=== PATIENT | male | born 1965 | race Caucasian/White ===

== ENCOUNTER 2018-08-12 23:09 | Observation (INO) | payer BC ==
--- NOTE | 2018-08-13 00:55 | PDOC ---
Attending Attestation - HPI HPI: 08/13/18 04:26 The patient is a 52 year old male, with a significant past medical history of AAA rupture (2017 s/p repair), two MIs (s/p stent most recently in 2015), and SBO (03/2018), who presents to the emergency department with, 1 day of nausea, vomiting, and abdominal pain. Patient endorses his pain to be different from his previous episode of SBO. He denies any recent fevers, chills, headache or dizziness. He denies any recent diarrhea or constipation. He denies any recent chest pain or shortness of breath. He denies any recent dysuria, frequency, urgency or hematuria. Allergies: NKDA - Physicial Exam PE: 08/13/18 06:24 Agree with resident exam. <Nadeen Orellana - Last Filed: 08/13/18 06:24> - Resident Resident Name: John Salgado - ED Attending Attestation I have performed the following: I have examined & evaluated the patient, The case was reviewed & discussed with the resident, I agree w/resident's findings & plan - Medical Decision Making 08/13/18 06:52 52-year-old male with abdominal pain and history of multiple abdominal surgeries CT scan is consistent with small bowel obstruction NG tube to be placed in the emergency department by ER resident Patient will likely be transferred to his regular facility for further management and continuity of care Impression bowel obstruction <Cheyanne Acuna - Last Filed: 08/13/18 06:53> Attestations - Attestations 08/13/18 05:03 Documentation prepared by Nadeen Orellana, acting as director medical surgical for Cheyanne Acuna DO. <Nadeen Orellana - Last Filed: 08/13/18 06:24>
--- NOTE | 2018-08-13 02:21 | PDOC ---
History of Present Illness - General Chief Complaint: Nausea/Vomiting Stated Complaint: Nausea/Vomiting/ABD PAIN Time Seen by Provider: 08/13/18 00:49 - History of Present Illness Initial Comments: 52 year old male with PMH of AAA rupture (2017 s/p repair complicated with bowel resection and anastamosis), "throat stricture" (difficulty passing ng tubes in the past), two MIs (s/p stent most recently in 2015), and SBO (03/2018 with imaging in our facility) presenting with nausea, vomiting, and abdominal pain for the past day. States that he had nausea and vomiting x 4 since yesterday starting at 10 AM the day before presentation. The abdominal pain has been gradually worsening. The pain is worse with eating. Denies diarrhea, fevers , chills, SOB, chest pain, or other symptoms. 08/13/18 03:47 Past History - Past Medical History Allergies/Adverse Reactions: Allergies Allergy/AdvReac Type Severity Reaction Status Date / Time No Known Allergies Allergy Verified 08/12/18 23:40 Home Medications: Ambulatory Orders Aspirin 81 mg PO DAILY 01/22/18 Atorvastatin Ca [Lipitor] 80 mg PO HS 01/22/18 Clopidogrel Bisulfate [Clopidogrel] 75 mg PO DAILY 01/22/18 Docusate Sodium 100 mg PO DAILY 01/22/18 Lisinopril 10 mg PO DAILY 01/22/18 Metoprolol Tartrate 25 mg PO DAILY 01/22/18 Cardiac Disorders: Yes (4 stents) COPD: No CHF: No GI Disorders: Yes (3 stents) HTN: Yes Hypercholesterolemia: Yes - Surgical History Cardiac Surgery: Yes GI Surgery: Yes - Suicide/Smoking/Psychosocial Hx Smoking History: Never smoked Have you smoked in the past 12 months: No Information on smoking cessation initiated: No Hx Alcohol Use: No Drug/Substance Use Hx: No Review of Systems - Review of Systems Constitutional: No: Chills, Diaphoresis, Fever, Loss of Appetite HEENTM: No: Blurred Vision, Tearing Respiratory: No: Cough, Orthopnea, Shortness of Breath Cardiac (ROS): No: Chest Pain, Irregular Heart Rate ABD/GI: Yes: Nausea, Vomiting. No: Diarrhea, Poor Fluid Intake : No: Dysuria, Frequency Musculoskeletal: No: Back Pain, Joint Pain, Joint Swelling Integumentary: No: Lesions, Lumps, Pallor Neurological: No: Numbness, Paresthesia, Tremors Psychiatric: No: Anxiety, Depression Hematologic/Lymphatic: No: Anemia, Blood Clots, Easy Bleeding *Physical Exam - Vital Signs Last Vital Signs Temp Pulse Resp BP Pulse Ox 97.3 F L 120 H 22 H 143/97 100 08/12/18 23:37 08/12/18 23:37 08/12/18 23:37 08/12/18 23:37 08/12/18 23:37 - Physical Exam General Appearance: Yes: Nourished, Appropriately Dressed, Apparent Distress, Mild Distress HEENT: positive: EOMI, ANGY, Normal ENT Inspection, Normal Voice Neck: positive: Trachea midline, Normal Thyroid, Supple. negative: Tender, Rigid Respiratory/Chest: positive: Lungs Clear, Normal Breath Sounds. negative: Chest Tender, Respiratory Distress, Accessory Muscle Use Cardiovascular: positive: Regular Rhythm, Regular Rate Gastrointestinal/Abdominal: positive: Normal Bowel Sounds, Tender (diffusely tender), Flat, Soft Lymphatic: negative: Adenopathy, Tenderness Musculoskeletal: positive: Normal Inspection. negative: Decreased Range of Motion Extremity: positive: Normal Capillary Refill, Normal Inspection, Normal Range of Motion. negative: Tender Integumentary: positive: Normal Color, Dry, Warm Neurologic: positive: Fully Oriented, Alert, Normal Mood/Affect, Normal Response , Motor Strength 5/5 Moderate Sedation - Procedure Monitoring Vital Signs: Procedure Monitoring Vital Signs Temperature 97.3 F L 08/12/18 23:37 Pulse Rate 120 H 08/12/18 23:37 Respiratory Rate 22 H 08/12/18 23:37 Blood Pressure 143/97 08/12/18 23:37 O2 Sat by Pulse Oximetry (%) 100 08/12/18 23:37 ED Treatment Course - LABORATORY CBC & Chemistry Diagram: 08/13/18 03:40 08/13/18 03:40 Medical Decision Making - Medical Decision Making 52 year old male with history of SBO a few months in the past presenting with N/ V and abdominal pain. CTA abdomen / Pelvis showing intact AAA graft but + for SBO at site of anastamosis. Patient refusing NG tube because of previous difficulty and throat stricture. Given that patient's surgeon is at [facility] ( Dr. Jessica Molina) Mobile number . Patient agrees to transfer and we called the surgeon at 07:00. Patient signed out to Dr. Oden in stable condition with labs corroborating hyperbilirubenemia (1.4) and alkaline phosphatemia (160). 08/13/18 07:06 *DC/Admit/Observation/Transfer Diagnosis at time of Disposition: SBO (small bowel obstruction) - Discharge Dispostion Disposition: TRANSFER ACUTE CARE/OTHER HOSP Condition at time of disposition: Stable Decision to Admit order: No - Referrals Referrals: Erick Zavala MD [Primary Care Provider] - - Patient Instructions - Post Discharge Activity
[2018-08-13] MEDS ORDERED: MAG HYDROX/AL HYDROX/SIMETH 30 ML UNIT-DOSE CUP PO ONE (03:41)
[2018-08-13] MEDS ORDERED: PANTOPRAZOLE SODIUM 40 MG VIAL IVPUSH ONE (03:42)
[2018-08-13] MEDS ORDERED: FAMOTIDINE 20 MG/50 ML IVPB 20 MG/50 ML MG IVPB ONE ×2 (03:45→03:47)
[2018-08-13] MEDS ORDERED: SODIUM CHLORIDE 0.9% 500 ML INFUS.BAG IV ONE (03:46)
[2018-08-13] MEDS ORDERED: PANTOPRAZOLE SODIUM 40 MG/100 ML BAG IVPB ONE (03:47)
[2018-08-13] MEDS ORDERED: MORPHINE SULFATE 2 MG/ML VIAL ONE ×2 (04:07→05:09)
[2018-08-13] MEDS ORDERED: ONDANSETRON 4 MG/2 ML VIAL ONE ×2 (04:08→08:23)
[2018-08-13 04:36] LABS: INR 1.02 (0.83-1.09)
[2018-08-13 04:49] LABS: BASO % 0.1 % (0-2.0); EOS % 0.1 % (0-4.5); HEMOGLOBIN 15.7 GM/dL (11.7-16.9); LYMPH % 5.1 % (8-40); MCH 28.1 pg (25.7-33.7); MCHC 33.4 g/dl (32.0-35.9); MEAN PLT VOLUME 8.7 fl (7.5-11.1); MONO % 5.4 % (3.8-10.2); NEUT % 89.3 % (42.8-82.8); PLATELET COUNT 226 K/MM3 (134-434); RBC 5.59 M/mm3 (4.00-5.60); RDW 18.3 % (11.9-15.9); WHITE BLOOD COUNT 11.8 K/mm3 (4.0-10.0)
[2018-08-13 04:51] LABS: ALBUMIN 4.2 g/dl (3.4-5.0); ALK PHOS 150 U/L (45-117); AMYLASE 45 U/L (25-115); ANION GAP 10 MMOL/L (8-16); BILIRUBIN,TOTAL 1.4 mg/dL (0.2-1); BLOOD UREA NITROGEN 13 mg/dL (7-18); CALCIUM 9.1 mg/dL (8.5-10.1); CHLORIDE 104 mmol/L (98-107); CO2 26 mmol/L (21-32); CREATININE 1.3 mg/dL (0.55-1.3); GLUCOSE,RANDOM 136 mg/dL (74-106); LIPASE 115 U/L (73-393); POTASSIUM 4.5 mmol/L (3.5-5.1); SGOT/AST 9 U/L (15-37); SGPT/ALT 39 U/L (13-61); SODIUM 140 mmol/L (136-145); TOT PROT 7.8 g/dl (6.4-8.2)
[2018-08-13] MEDS ORDERED: morphine CARPU-JECT 2 MG/1 ML DISP.SYRIN IVPUSH ONE (05:01)
[2018-08-13] MEDS ORDERED: ONDANSETRON 4 MG/2 ML VIAL IVPB ONE (08:16)
[2018-08-13] MEDS ORDERED: morphine CARPU-JECT 4 MG/1 ML DISP.SYRIN IVPUSH ONE (08:16)
--- NOTE | 2018-08-13 08:18 | PDOC ---
*Physical Exam - Vital Signs Last Vital Signs Temp Pulse Resp BP Pulse Ox 97.3 F L 120 H 22 H 143/97 100 08/12/18 23:37 08/12/18 23:37 08/12/18 23:37 08/12/18 23:37 08/12/18 23:37 ED Treatment Course - LABORATORY CBC & Chemistry Diagram: 08/14/18 06:45 08/14/18 06:45 - ADDITIONAL ORDERS Additional order review: Laboratory Results 08/13/18 08/13/18 08/13/18 05:27 04:00 03:40 PT with INR 12.00 INR 1.02 Sodium 140 Potassium 4.5 Chloride 104 Carbon Dioxide 26 Anion Gap 10 BUN 13 Creatinine 1.3 Creat Clearance w eGFR 58.43 Random Glucose 136 H Calcium 9.1 Total Bilirubin 1.4 H AST 9 L ALT 39 Alkaline Phosphatase 150 H Total Protein 7.8 Albumin 4.2 Total Amylase 45 Lipase 115 Stool Occult Blood Negative 08/13/18 03:40 RBC 5.59 MCV 84.0 MCHC 33.4 RDW 18.3 H MPV 8.7 Neutrophils % 89.3 H Lymphocytes % 5.1 L Monocytes % 5.4 Eosinophils % 0.1 Basophils % 0.1 - Medications Given in the ED: ED Medications Discontinued Medications Generic Name Dose Route Start Last Admin Trade Name Erasto PRN Reason Stop Dose Admin Al Hydroxide/Mg Hydroxide 30 ml 08/13/18 03:41 08/13/18 04:01 Mylanta Oral Suspension - PO 08/13/18 03:42 Not Given ONCE ONE Famotidine/Sodium Chloride 20 mg in 50 mls @ 100 mls/hr 08/13/18 03:45 04:00 Pepcid 20 Mg Premixed Ivpb - IVPB 08/13/18 04:14 100 mls/hr ONCE ONE Administration Morphine Sulfate 2 mg 08/13/18 05:01 08/13/18 05:30 Morphine Injection - IVPUSH 08/13/18 05:02 2 mg ONCE ONE Administration Pantoprazole Sodium 40 mg 08/13/18 03:42 08/13/18 04:00 Protonix Iv IVPUSH 08/13/18 03:43 40 mg ONCE ONE Administration Sodium Chloride 1,000 ml 08/13/18 03:46 08/13/18 04:00 Normal Saline - IV 08/13/18 03:47 1,000 ml ONCE ONE Administration Medical Decision Making - Medical Decision Making 08/13/18 08:16 sign out received at 7AM 52M with h/o AAA repair c/b ischemic bowel s/p resection, c/b recurrent SBO, presenting today with N/V/abdominal pain. - CT shows SBO with transition point in RLQ - I spoke with Dr. Molina, who agrees with transfer to [facility] Transfer center called, awaiting callback 08/13/18 09:29 Pt accepted for transfer to floor at [facility] by Dr. Molina 08/13/18 11:32 Transfer center called, stating there are no beds available until tomorrow morning. Pt admitted to Dr. Zavala as obs 08/13/18 11:36 Dr. Monahan consulted, recommends that pt be sent to [facility] ED to wait for bed rather than be admitted here. Discussed with Dr. Molina, who does NOT want ED to ED transfer. Requesting that pt be admitted directly to the floor. *DC/Admit/Observation/Transfer Diagnosis at time of Disposition: SBO (small bowel obstruction) - Discharge Dispostion Disposition: TRANSFER ACUTE CARE/OTHER HOSP Condition at time of disposition: Stable Decision to Admit order: Yes - Referrals - Patient Instructions - Post Discharge Activity - Attestations Physician Attestion: 08/13/18 08:18 I, Dr. Gab Oden MD, attest that this document has been prepared under my direction and personally reviewed by me in its entirety. I further attest, that it accurately reflects all work, treatment, procedures and medical decision -making performed by me.
[2018-08-13] MEDS ORDERED: morphine SULFATE 4 MG/ML VIAL ONE (08:23)
[2018-08-13] MEDS ORDERED: CEFTRIAXONE 1,000 MG in DEXTROSE 5%-WATER - 50 ML IVPB ONE (11:39)
[2018-08-13] MEDS ORDERED: CEFTRIAXONE 1 GM/50 ML BAG ONE (12:02)
--- NOTE | 2018-08-13 13:16 | EKG ---
Test Reason : Blood Pressure : / mmHG Vent. Rate : 093 BPM Atrial Rate : 093 BPM P-R Int : 164 ms QRS Dur : 128 ms QT Int : 382 ms P-R-T Axes : 026 128 037 degrees QTc Int : 474 ms NORMAL SINUS RHYTHM RIGHT BUNDLE BRANCH BLOCK LEFT POSTERIOR FASCICULAR BLOCK BIFASCICULAR BLOCK ABNORMAL ECG WHEN COMPARED WITH ECG OF 22-JAN-2018 22:21, (RBBB AND LEFT POSTERIOR FASCICULAR BLOCK) IS NOW PRESENT Confirmed by KARTHIK LEIGH, TJ ([id number] on 08/13/2018 1:16:06 PM Referred By: Confirmed By:TJ ANGELES MD
[2018-08-13 14:01] VITALS: BMI 31.0
[2018-08-13] MEDS ORDERED: FLU VACCINE QUAD 60 MCG/0.5 ML (MDV 18-19) IM ONE (15:00)
[2018-08-13] MEDS ORDERED: DEXTROSE 5%-0.45% SALINE 1,000 ML IV SCH (15:15)
--- NOTE | 2018-08-13 16:07 | PN ---
Progress Note (short form) - Note Progress Note: surgery 52 m on plavix, multiple cardiac and medical problems, aaa repair in 2017 with small rosio injury and resection at [facility], last sbo in march, presents with recurrent sbo and accepted for transfer to [facility]. Since there are no beds available at [facility] until am pt is to be observed at [facility] with me available to intervene emergently if necessary. I requested to Dr. MANLEY that pt be transferred directly to the [place] ER and not kept here where he cannot be safely managed and my request was declined by [facility] per Dr. MANLEY. I am available for emergent surgery if patient develops bowel compromise. Because of cardiac condition and Plavix he cannot by managed safely at a [facility] and any surgery would likely have a poor outcome.
[2018-08-13] MEDS ORDERED: morphine SULFATE 4 MG/ML VIAL IVPUSH PRN (17:42)
[2018-08-13] MEDS ORDERED: ONDANSETRON 4 MG/2 ML VIAL IVPB PRN (17:42)
[2018-08-13] MEDS ORDERED: DEXTROSE 5%-WATER - 50 ML IVPB ONE (20:08)
[2018-08-13] MEDS ORDERED: PIPERACILLIN/TAZOBACTAM 3.375 GM VIAL IVPB ONE (20:08)
[2018-08-13] MEDS ORDERED: ZOLPIDEM TARTRATE 5 MG TABLET PO PRN (20:08)
[2018-08-13] MEDS: PIPERACILLIN/TAZOB 3.375 GM 3.375 GM in DEXTROSE 5%-WATER - 50 ML IVPB SCH (20:20)
[2018-08-14] MEDS ORDERED: PIPERACILLIN/TAZOBACTAM 3.375 GM VIAL IVPB ONE ×2 (00:19→09:34)
[2018-08-14] MEDS: PIPERACILLIN/TAZOB 3.375 GM 3.375 GM in DEXTROSE 5%-WATER - 50 ML IVPB SCH ×2 (01:32→09:48)
[2018-08-14 08:10] LABS: BASO % 0.5 % (0-2.0); EOS % 4.2 % (0-4.5); HEMATOCRIT 36.8 % (35.4-49); HEMOGLOBIN 12.3 GM/dL (11.7-16.9); LYMPH % 21.3 % (8-40); MCH 28.4 pg (25.7-33.7); MCHC 33.4 g/dl (32.0-35.9); MEAN CELL VOLUME 85.1 fl (80-96); MEAN PLT VOLUME 8.4 fl (7.5-11.1); MONO % 13.9 % (3.8-10.2); NEUT % 60.1 % (42.8-82.8); PLATELET COUNT 163 K/MM3 (134-434); RBC 4.33 M/mm3 (4.00-5.60); RDW 18.2 % (11.9-15.9); WHITE BLOOD COUNT 5.3 K/mm3 (4.0-10.0)
[2018-08-14 08:39] LABS: ALBUMIN 3.2 g/dl (3.4-5.0); ALK PHOS 107 U/L (45-117); ANION GAP 6 MMOL/L (8-16); BLOOD UREA NITROGEN 15 mg/dL (7-18); CALCIUM 7.8 mg/dL (8.5-10.1); CHLORIDE 108 mmol/L (98-107); CO2 27 mmol/L (21-32); CREATININE 1.2 mg/dL (0.55-1.3); GLUCOSE,RANDOM 106 mg/dL (74-106); POTASSIUM 3.7 mmol/L (3.5-5.1); SGOT/AST 12 U/L (15-37); SGPT/ALT 24 U/L (13-61); SODIUM 140 mmol/L (136-145); TOT PROT 5.9 g/dl (6.4-8.2)
[2018-08-14] MEDS ORDERED: DEXTROSE 5%-WATER - 50 ML IVPB ONE (09:34)
[2018-08-14 09:41] VITALS: BP 106/76; PULSE 75; TEMP 98
[2018-08-14] MEDS ORDERED: PANTOPRAZOLE SODIUM 40 MG VIAL IVPUSH SCH (10:00)
--- NOTE | 2018-08-14 10:50 | HP ---
Admitting History and Physical - Admission Chief Complaint: 55 y/o s/p lolectomy w colostomy and recnt reversal october of colostomy. c/o abd pain scale 7 h/o mi x 2 stents x2 in past a/p abd aortic repair admitted sbo. tolerating diet as per sx able to go hoime History Source: Patient, Family Member Limitations to Obtaining History: No Limitations - Past Medical History Gastrointestinal: Yes: Other (less pain soft) Infectious Disease: Yes: Other (wbc nl now) - Past Surgical History Past Surgical History: Yes: Appendectomy (abd aortic aneurysm repair), Colectomy (colostomy w recnt reversal abd aortic aneurysm repair) - Smoking History Smoking history: Former smoker Have you smoked in the past 12 months: No If you are a former smoker, when did you quit?: 2016 - Alcohol/Substance Use Hx Alcohol Use: No (quit 2015) History of Substance Use: reports: None - Social History Usual Living Arrangement: Yes: With Spouse History of Recent Travel: No Home Medications - Allergies Allergies/Adverse Reactions: Allergies Allergy/AdvReac Type Severity Reaction Status Date / Time No Known Allergies Allergy Verified 08/12/18 23:40 - Home Medications Home Medications: Ambulatory Orders Aspirin 81 mg PO DAILY 01/22/18 Atorvastatin Ca [Lipitor] 80 mg PO HS 01/22/18 Clopidogrel Bisulfate [Clopidogrel] 75 mg PO DAILY 01/22/18 Docusate Sodium 100 mg PO DAILY 01/22/18 Lisinopril 10 mg PO DAILY 01/22/18 Metoprolol Tartrate 25 mg PO DAILY 01/22/18 Family Disease History - Family Disease History Family History: Unremarkable Review of Systems - Review of Systems Gastrointestinal: reports: Abdominal Pain Physical Examination Vital Signs: Vital Signs Temperature 98.0 F 08/14/18 09:40 Pulse Rate 75 08/14/18 09:40 Respiratory Rate 20 08/14/18 09:40 Blood Pressure 106/76 08/14/18 09:40 O2 Sat by Pulse Oximetry (%) 96 08/13/18 19:40 Labs: CBC, BMP 08/14/18 06:45 08/14/18 06:45 Assessment/Plan soft diet d/c home today cont all tx as is at home appt w me saturday
== END 2018-08-14 11:23 | disposition home or self-care (01) ==
LOC: JER 23:09 → JERBED 08-13 11:38 → J6S 08-13 12:47
PROVIDERS: ADMIT Family Medicine; ATTEND Family Medicine
PROC: 3E03329 Introduction of Other Anti-infective into Peripheral Vein, Percutaneous Approach (ICD-10-PCS; principal; 2018-08-13)
PROC: 3E033NZ Introduction of Analgesics, Hypnotics, Sedatives into Peripheral Vein, Percutaneous Approach (ICD-10-PCS; 2018-08-13)
PROC: 3E033GC Introduction of Other Therapeutic Substance into Peripheral Vein, Percutaneous Approach (ICD-10-PCS; 2018-08-13)
PROC: 3E0337Z Introduction of Electrolytic and Water Balance Substance into Peripheral Vein, Percutaneous Approach (ICD-10-PCS; 2018-08-13)
PROC: 3E0234Z Introduction of Serum, Toxoid and Vaccine into Muscle, Percutaneous Approach (ICD-10-PCS; 2018-08-13)
DX: K56.690 Other partial intestinal obstruction (principal); I25.2 Old myocardial infarction; Z79.82 Long term (current) use of aspirin; Z95.5 Presence of coronary angioplasty implant and graft; Z86.79 Personal history of other diseases of the circulatory system
CPT/HCPCS: 36415; 75635-TC; 80053; 82150; 82272; 83605; 83690; 85025; 85610; 90688; 93005; 93010; 99284-25; G0378

== ENCOUNTER 2019-05-25 13:05 | Day surgery (SDC) | payer BC ==
[2019-05-25 13:33] VITALS: BMI 31.8
[2019-05-25 14:51] VITALS: TEMP 98
[2019-05-25 15:30] VITALS: BP 135/80; PULSE 73
== END 2019-05-25 15:40 | disposition home or self-care (01) ==
LOC: JASU-ENDO 13:05 → JOR 13:05 → JASU-ENDO 15:40
PROVIDERS: ATTEND Internal Medicine Gastroenterology
PROC: 0D7P8ZZ Dilation of Rectum, Via Natural or Artificial Opening Endoscopic (ICD-10-PCS; principal; 2019-05-25 14:00)
DX: K62.4 Stenosis of anus and rectum (principal); K58.1 Irritable bowel syndrome with constipation

== ENCOUNTER 2020-09-09 17:16 | Emergency (ER) | payer BC ==
[2020-09-09 17:27] VITALS: BMI 32.5
[2020-09-09] MEDS ORDERED: ACETAMINOPHEN 1000 MG/100 ML VIAL (NON FORMULARY) IVPB ONE (19:20)
[2020-09-09] MEDS ORDERED: ACETAMINOPHEN INJECTION 100 ML IVPB ONE (19:41)
[2020-09-09 19:52] LABS: BASO % 0.4 % (0-2.0); EOS % 2.7 % (0-4.5); HEMATOCRIT 46.3 % (35.4-49); HEMOGLOBIN 15.6 GM/dL (11.7-16.9); LYMPH % 26.9 % (8-40); MCH 30.7 pg (25.7-33.7); MCHC 33.7 g/dl (32.0-35.9); MEAN CELL VOLUME 91.2 fl (80-96); MEAN PLT VOLUME 9.5 fl (7.5-11.1); MONO % 9.3 % (3.8-10.2); NEUT % 60.7 % (42.8-82.8); PLATELET COUNT 237 K/MM3 (134-434); RBC 5.07 M/mm3 (4.00-5.60); RDW 13.8 % (11.9-15.9); WHITE BLOOD COUNT 9.5 K/mm3 (4.0-10.0)
[2020-09-09 19:57] LABS: INR 0.9 (0.83-1.09); PROTHROMBIN TIME (PATIENT) 10.9 SEC (9.7-13.0)
[2020-09-09 20:11] LABS: CHLORIDE 107 mmol/L (98-107); SODIUM 137 mmol/L (136-145)
[2020-09-09 20:13] LABS: CALCIUM 8.8 mg/dL (8.5-10.1)
[2020-09-09 20:14] LABS: ALBUMIN 3.8 g/dl (3.4-5.0); BLOOD UREA NITROGEN 13.2 mg/dL (7-18); CO2 27 mmol/L (21-32); GLUCOSE,RANDOM 138 mg/dL (74-106)
[2020-09-09 20:17] LABS: CREATININE 1.3 mg/dL (0.55-1.3); SGOT/AST 64 U/L (15-37)
[2020-09-09 20:18] LABS: BILIRUBIN,TOTAL 0.5 mg/dL (0.2-1)
[2020-09-09 20:20] LABS: ALK PHOS 155 U/L (45-117)
[2020-09-09 20:26] LABS: ANION GAP 3 MMOL/L (8-16); SGPT/ALT 48 U/L (13-61)
[2020-09-09 20:28] LABS: POTASSIUM 6.1 mmol/L (3.5-5.1)
[2020-09-09 20:51] LABS: ERYTHROCYTE SEDIMENTATION RATE 5 mm/hr (0-20)
[2020-09-09 21:16] VITALS: BP 104/81; PULSE 67
[2020-09-09 21:57] LABS: VENOUS BASE EXCESS 2.2 mmol/L (-2-2); VENOUS O2 SATURATION 93.2 % (70-80); VENOUS PCO2 40.8 mmHg (38-52); VENOUS PH 7.432 (7.310-7.410)
== END 2020-09-09 22:36 | disposition home or self-care (01) ==
LOC: JER 17:16
PROC: 3E0333Z Introduction of Anti-inflammatory into Peripheral Vein, Percutaneous Approach (ICD-10-PCS; principal; 2020-09-09)
DX: L95.9 Vasculitis limited to the skin, unspecified (principal); L81.9 Disorder of pigmentation, unspecified
CPT/HCPCS: 36415; 71045-TC-FY; 80053; 82803; 83605; 84132; 84484; 85025; 85610; 85651; 85730; 86140; 87040; 93005; 93010; 99285-25; J0131

== ENCOUNTER 2021-07-08 00:32 | Inpatient (IN) | payer BC ==
[2021-07-08 01:35] VITALS: BMI 33.4
[2021-07-08] MEDS ORDERED: LACTATED RINGERS SOLUTION 1000 ML INFUS.BAG IV ONE (02:18)
[2021-07-08] MEDS ORDERED: morphine SULFATE 4 MG/ML VIAL IVPUSH ONE (02:18)
[2021-07-08] MEDS ORDERED: ACETAMINOPHEN 1000 MG/100 ML VIAL IVPB ONE (02:18)
[2021-07-08] MEDS ORDERED: ONDANSETRON 4 MG/2 ML VIAL IVPUSH ONE (02:19)
[2021-07-08] MEDS ORDERED: ACETAMINOPHEN INJECTION 100 ML IVPB ONE (02:34)
[2021-07-08] MEDS ORDERED: ONDANSETRON 4 MG/2 ML VIAL ONE (02:34)
[2021-07-08 03:35] LABS: BASO % 0.2 % (0-2.0); HEMATOCRIT 53.9 % (35.4-49); HEMOGLOBIN 18.4 GM/dL (11.7-16.9); LYMPH % 4.9 % (8-40); MCHC 34.1 g/dl (32.0-35.9); MEAN CELL VOLUME 88.1 fl (80-96); MEAN PLT VOLUME 8.8 fl (7.5-11.1); NEUT % 86.9 % (42.8-82.8); PLATELET COUNT 293 10^3/uL (134-434); RBC 6.12 M/mm3 (4.00-5.60); RDW 13.9 % (11.9-15.9); WHITE BLOOD COUNT 10.9 K/mm3 (4.0-10.0)
[2021-07-08 03:44] LABS: INR 1.39 (0.83-1.09); PROTHROMBIN TIME (PATIENT) 15.6 SEC (9.7-13.0)
[2021-07-08 03:47] LABS: ACTIVATED PTT 34.4 SECONDS (25.2-36.5)
[2021-07-08 03:55] LABS: CHLORIDE 104 mmol/L (98-107); SODIUM 139 mmol/L (136-145)
[2021-07-08 03:58] LABS: ALBUMIN 4.9 g/dl (3.4-5.0); ANION GAP 9 MMOL/L (8-16); BLOOD UREA NITROGEN 18.9 mg/dL (7-18); CALCIUM 9.8 mg/dL (8.5-10.1); CO2 26 mmol/L (21-32); LIPASE 98 U/L (73-393)
[2021-07-08 04:01] LABS: CREATININE 1.5 mg/dL (0.55-1.3); SGOT/AST 19 U/L (15-37); SGPT/ALT 40 U/L (13-61)
[2021-07-08 04:03] LABS: BILIRUBIN,TOTAL 1.4 mg/dL (0.2-1); TOT PROT 9.6 g/dl (6.4-8.2)
[2021-07-08 04:04] LABS: ALK PHOS 186 U/L (45-117)
[2021-07-08] MEDS ORDERED: SODIUM CHLORIDE 0.9% 500 ML INFUS.BAG IV ONE (04:58)
[2021-07-08 05:10] LABS: GLUCOSE,RANDOM 147 mg/dL (74-106)
[2021-07-08 06:10] LABS: EPI CELLS 8 /uL (0-25.1); HYALINE CASTS 3 /uL (0-3.1); URINE APPEARANCE CLEAR; URINE BILIRUBIN 1+ (NEGATIVE); URINE COLOR DK YELLOW; URINE GLUCOSE (UA) NEGATIVE (NEGATIVE); URINE KETONE TRACE (NEGATIVE); URINE LEUK ESTERASE NEGATIVE (NEGATIVE); URINE NITRITE NEGATIVE (NEGATIVE); URINE PROTEIN 2+ (NEGATIVE); URINE RBC 21251 /uL (0-23.9); URINE WBC 41 /uL (0-25.8)
[2021-07-08 07:09] LABS: URINE BACTERIA 0.9 /uL (0-1359)
[2021-07-08] MEDS ORDERED: ALBUTEROL SO4 HFA INHALER IH PRN (10:20)
[2021-07-08] MEDS ORDERED: METOPROLOL TARTRATE 5 MG/5 ML VIAL IVPUSH ONE (10:24)
[2021-07-08] MEDS ORDERED: morphine CARPU-JECT 4 MG/1 ML DISP.SYRIN IVPUSH PRN (10:33)
[2021-07-08] MEDS ORDERED: PROMETHAZINE HCL 25 MG/1 ML VIAL IVPUSH PRN (14:06)
[2021-07-08] MEDS ORDERED: ONDANSETRON 4 MG/2 ML VIAL IVPUSH PRN (14:06)
[2021-07-08] MEDS ORDERED: LACTATED RINGERS SOLUTION 1,000 ML IV SCH (14:15)
[2021-07-08] MEDS: PIPERACILLIN/TAZOB 3.375 GM 3.375 GM in DEXTROSE 5%-WATER - 50 ML IVPB SCH ×2 (15:21→18:11)
[2021-07-08] MEDS: SODIUM CHLORIDE 1,000 ML IV SCH (15:22)
[2021-07-08] MEDS: RIVAROXABAN 20 MG TABLET PO SCH (18:11)
[2021-07-08] MEDS: morphine SULFATE 4 MG/ML VIAL IVPUSH PRN (19:53)
[2021-07-09] MEDS ORDERED: PIPERACILLIN/TAZOBACTAM 3.375 GM VIAL IVPB ONE ×3 (01:02→17:12)
[2021-07-09] MEDS ORDERED: DEXTROSE 5%-WATER - 50 ML IVPB ONE ×3 (01:02→17:12)
[2021-07-09] MEDS: PIPERACILLIN/TAZOB 3.375 GM 3.375 GM in DEXTROSE 5%-WATER - 50 ML IVPB SCH ×3 (01:09→17:16)
[2021-07-09] MEDS: TAMSULOSIN HCL 0.4 MG CAP PO SCH ×2 (01:58→10:06)
[2021-07-09] MEDS: morphine SULFATE 4 MG/ML VIAL IVPUSH PRN ×3 (04:17→21:43)
[2021-07-09] MEDS: SODIUM CHLORIDE 1,000 ML IV SCH ×3 (04:17→17:16)
[2021-07-09 08:24] LABS: BASO % 0.4 % (0-2.0); EOS % 1.2 % (0-4.5); HEMATOCRIT 39.5 % (35.4-49); HEMOGLOBIN 13.9 GM/dL (11.7-16.9); LYMPH % 19.2 % (8-40); MCH 30.8 pg (25.7-33.7); MCHC 35.1 g/dl (32.0-35.9); MEAN CELL VOLUME 87.7 fl (80-96); MEAN PLT VOLUME 8.2 fl (7.5-11.1); NEUT % 63.2 % (42.8-82.8); PLATELET COUNT 171 10^3/uL (134-434); RDW 13.6 % (11.9-15.9); WHITE BLOOD COUNT 6.6 K/mm3 (4.0-10.0)
[2021-07-09 08:45] LABS: BLOOD UREA NITROGEN 20.2 mg/dL (7-18)
[2021-07-09 08:49] LABS: CREATININE 1.3 mg/dL (0.55-1.3)
[2021-07-09 08:50] LABS: BILIRUBIN,TOTAL 1.2 mg/dL (0.2-1)
[2021-07-09 09:01] LABS: ALBUMIN 3.2 g/dl (3.4-5.0); TOT PROT 6.2 g/dl (6.4-8.2)
[2021-07-09] MEDS: amLODIPine BESYLATE 5 MG TABLET (FP) PO SCH (10:07)
[2021-07-09] MEDS: PANTOPRAZOLE SODIUM 40 MG VIAL IVPUSH SCH (10:12)
[2021-07-09] MEDS: RIVAROXABAN 20 MG TABLET PO SCH (17:08)
[2021-07-10] MEDS ORDERED: PIPERACILLIN/TAZOBACTAM 3.375 GM VIAL IVPB ONE ×3 (00:47→17:57)
[2021-07-10] MEDS ORDERED: DEXTROSE 5%-WATER - 50 ML IVPB ONE ×3 (00:47→17:58)
[2021-07-10] MEDS: PIPERACILLIN/TAZOB 3.375 GM 3.375 GM in DEXTROSE 5%-WATER - 50 ML IVPB SCH ×3 (01:00→18:03)
[2021-07-10] MEDS: SODIUM CHLORIDE 1,000 ML IV SCH ×2 (02:11→14:18)
[2021-07-10] MEDS: morphine SULFATE 4 MG/ML VIAL IVPUSH PRN ×3 (05:56→21:26)
[2021-07-10] MEDS: TAMSULOSIN HCL 0.4 MG CAP PO SCH (08:46)
[2021-07-10] MEDS: PANTOPRAZOLE SODIUM 40 MG VIAL IVPUSH SCH (10:03)
[2021-07-10] MEDS: amLODIPine BESYLATE 5 MG TABLET (FP) PO SCH (10:03)
[2021-07-10 10:59] LABS: CALCIUM 8.2 mg/dL (8.5-10.1)
[2021-07-10 11:00] LABS: BLOOD UREA NITROGEN 16.8 mg/dL (7-18)
[2021-07-10 11:03] LABS: CREATININE 1.1 mg/dL (0.55-1.3)
[2021-07-10 11:05] LABS: BILIRUBIN,TOTAL 0.8 mg/dL (0.2-1); TOT PROT 6.4 g/dl (6.4-8.2)
[2021-07-10 11:45] LABS: BASO % 0.4 % (0-2.0); HEMATOCRIT 41.3 % (35.4-49); LYMPH % 19.3 % (8-40); MCH 30.1 pg (25.7-33.7); MEAN CELL VOLUME 88.6 fl (80-96); MEAN PLT VOLUME 8.7 fl (7.5-11.1); MONO % 10.2 % (3.8-10.2); NEUT % 67.1 % (42.8-82.8); PLATELET COUNT 170 10^3/uL (134-434); RBC 4.66 M/mm3 (4.00-5.60); RDW 13.4 % (11.9-15.9)
[2021-07-10] MEDS: RIVAROXABAN 20 MG TABLET PO SCH (18:04)
[2021-07-11] MEDS ORDERED: DEXTROSE 5%-WATER - 50 ML IVPB ONE ×3 (01:20→17:55)
[2021-07-11] MEDS ORDERED: PIPERACILLIN/TAZOBACTAM 3.375 GM VIAL IVPB ONE ×3 (01:20→17:55)
[2021-07-11] MEDS: PIPERACILLIN/TAZOB 3.375 GM 3.375 GM in DEXTROSE 5%-WATER - 50 ML IVPB SCH ×3 (01:35→17:58)
[2021-07-11] MEDS: PANTOPRAZOLE SODIUM 40 MG VIAL IVPUSH SCH (09:25)
[2021-07-11] MEDS: amLODIPine BESYLATE 5 MG TABLET (FP) PO SCH (09:25)
[2021-07-11] MEDS: TAMSULOSIN HCL 0.4 MG CAP PO SCH (09:25)
[2021-07-11] MEDS: RIVAROXABAN 20 MG TABLET PO SCH (17:59)
[2021-07-11] MEDS: SODIUM CHLORIDE 1,000 ML IV SCH (18:00)
[2021-07-12] MEDS ORDERED: PIPERACILLIN/TAZOBACTAM 3.375 GM VIAL IVPB ONE ×2 (00:48→08:49)
[2021-07-12] MEDS ORDERED: DEXTROSE 5%-WATER - 50 ML IVPB ONE ×2 (00:49→08:49)
[2021-07-12] MEDS: PIPERACILLIN/TAZOB 3.375 GM 3.375 GM in DEXTROSE 5%-WATER - 50 ML IVPB SCH (01:06)
[2021-07-12 08:59] VITALS: BP 117/77; PULSE 70; TEMP 97.3
[2021-07-12] MEDS: TAMSULOSIN HCL 0.4 MG CAP PO SCH (09:01)
[2021-07-12] MEDS: amLODIPine BESYLATE 5 MG TABLET (FP) PO SCH (09:01)
[2021-07-12] MEDS: PANTOPRAZOLE SODIUM 40 MG VIAL IVPUSH SCH (09:01)
== END 2021-07-12 15:08 | disposition home or self-care (01) | DRG 389 ==
LOC: JER 00:32 → JERBED 05:33 → J6S 17:33
PROVIDERS: ADMIT Family Medicine; ATTEND Family Medicine
PROC: 0D9670Z Drainage of Stomach with Drainage Device, Via Natural or Artificial Opening (ICD-10-PCS; principal; 2021-07-08 14:42)
DX: K91.31 Postprocedural partial intestinal obstruction (principal); N17.9 Acute kidney failure, unspecified; I10 Essential (primary) hypertension; E78.00 Pure hypercholesterolemia, unspecified; D72.829 Elevated white blood cell count, unspecified; E86.0 Dehydration; I25.10 Atherosclerotic heart disease of native coronary artery without angina pectoris; Z95.5 Presence of coronary angioplasty implant and graft; Z86.718 Personal history of other venous thrombosis and embolism; K91.30 Postprocedural intestinal obstruction, unspecified as to partial versus complete; Y83.8 Other surgical procedures as the cause of abnormal reaction of the patient, or of later complication, without mention of misadventure at the time of the procedure
CPT/HCPCS: 36415; 71046-TC-FY; 74018-TC-FY; 74019-TC-FY; 74177-TC; 80053; 81003; 82550; 83690; 84484; 85025; 85610; 85730; 87086; 93005; 93010; 94760; 99285-25; C9803; J0131; Q9967; U0003; U0005

== ENCOUNTER 2022-02-24 11:12 | Inpatient (IN) | payer BC ==
[2022-02-24 11:25] VITALS: BMI 32.5
[2022-02-24] MEDS ORDERED: ACETAMINOPHEN 1000 MG/100 ML BAG IVPB ONE (13:15)
[2022-02-24] MEDS ORDERED: SODIUM CHLORIDE 0.9% 500 ML INFUS.BAG IV ONE ×2 (13:15→14:39)
[2022-02-24] MEDS ORDERED: ONDANSETRON 4 MG/2 ML VIAL IVPUSH ONE ×3 (13:15→20:24)
[2022-02-24] MEDS ORDERED: ONDANSETRON 4 MG/2 ML VIAL ONE ×3 (13:17→20:26)
[2022-02-24] MEDS ORDERED: ACETAMINOPHEN INJECTION 100 ML IVPB ONE (13:37)
[2022-02-24 14:02] LABS: BASO % 0.2 % (0-2.0); EOS % 0.2 % (0-4.5); HEMATOCRIT 49.7 % (35.4-49); HEMOGLOBIN 17.2 GM/dL (11.7-16.9); LYMPH % 4.8 % (8-40); MCH 30.6 pg (25.7-33.7); MCHC 34.6 g/dl (32.0-35.9); MEAN CELL VOLUME 88.6 fl (80-96); MEAN PLT VOLUME 8.1 fl (7.5-11.1); MONO % 6.1 % (3.8-10.2); NEUT % 88.7 % (42.8-82.8); PLATELET COUNT 217 10^3/uL (134-434); RBC 5.61 M/mm3 (4.00-5.60); RDW 13.9 % (11.9-15.9); WHITE BLOOD COUNT 10.9 K/mm3 (4.0-10.0)
[2022-02-24 14:15] LABS: ACTIVATED PTT 31.5 SECONDS (25.2-36.5); INR 1.05 (0.83-1.09); PROTHROMBIN TIME (PATIENT) 12.1 SEC (9.7-13.0)
[2022-02-24 14:22] LABS: CALCIUM 9.9 mg/dL (8.5-10.1)
[2022-02-24 14:23] LABS: ALBUMIN 4.6 g/dl (3.4-5.0); BLOOD UREA NITROGEN 14.1 mg/dL (7-18); MAGNESIUM 2.3 mg/dL (1.8-2.4)
[2022-02-24 14:26] LABS: CREATININE 1.4 mg/dL (0.55-1.3)
[2022-02-24 14:27] LABS: BILIRUBIN,TOTAL 1.3 mg/dL (0.2-1); TOT PROT 8.5 g/dl (6.4-8.2)
[2022-02-24 14:31] LABS: LACTIC ACID 2.1 mmol/L (0.4-2.0)
[2022-02-24 16:27] LABS: LACTIC ACID 2.3 mmol/L (0.4-2.0)
[2022-02-24] MEDS ORDERED: morphine CARPU-JECT 4 MG/1 ML DISP.SYRIN IVPUSH ONE ×2 (16:36→20:24)
[2022-02-24] MEDS ORDERED: morphine SULFATE 4 MG/ML VIAL ONE ×2 (17:23→20:26)
[2022-02-24 17:46] LABS: EPI CELLS 7 /uL (0-25.1); HYALINE CASTS 3 /uL (0-3.1); PH,URINE 5.5 (5.0-8.0); URINE APPEARANCE CLEAR; URINE BACTERIA 34 /uL (0-1359); URINE BILIRUBIN NEGATIVE (NEGATIVE); URINE COLOR YELLOW; URINE GLUCOSE (UA) NEGATIVE (NEGATIVE); URINE KETONE NEGATIVE (NEGATIVE); URINE LEUK ESTERASE NEGATIVE (NEGATIVE); URINE NITRITE NEGATIVE (NEGATIVE); URINE PROTEIN 2+ (NEGATIVE); URINE RBC 235 /uL (0-23.9); URINE UROBILINOGEN 0.2 mg/dL (0.2-1.0); URINE WBC 10 /uL (0-25.8)
[2022-02-24] MEDS ORDERED: ACETAMINOPHEN 1000 MG/100 ML BAG IVPB PRN (22:11)
[2022-02-24] MEDS ORDERED: SODIUM CHLORIDE 1,000 ML IV SCH (22:15)
[2022-02-25 05:13] VITALS: RESP 20
[2022-02-25 09:10] LABS: HEMOGLOBIN 14.4 GM/dL (11.7-16.9); MCH 30.5 pg (25.7-33.7); MCHC 34.3 g/dl (32.0-35.9); MEAN CELL VOLUME 88.9 fl (80-96); MEAN PLT VOLUME 8.3 fl (7.5-11.1); PLATELET COUNT 178 10^3/uL (134-434); RBC 4.72 M/mm3 (4.00-5.60); RDW 13.9 % (11.9-15.9); WHITE BLOOD COUNT 5.3 K/mm3 (4.0-10.0)
[2022-02-25 09:31] LABS: CALCIUM 8.5 mg/dL (8.5-10.1)
[2022-02-25 09:32] LABS: MAGNESIUM 2.2 mg/dL (1.8-2.4)
[2022-02-25 09:35] LABS: CREATININE 1.2 mg/dL (0.55-1.3)
[2022-02-25 09:37] LABS: BILIRUBIN,TOTAL 1.4 mg/dL (0.2-1); TOT PROT 6.7 g/dl (6.4-8.2)
[2022-02-25 09:38] LABS: ALBUMIN 3.6 g/dl (3.4-5.0)
[2022-02-25] MEDS ORDERED: amLODIPine BESYLATE 5 MG TABLET (FP) PO SCH (10:00)
[2022-02-25] MEDS ORDERED: ASPIRIN 81 MG CHEWABLE TABLETS PO SCH (10:00)
[2022-02-25] MEDS ORDERED: METOPROLOL TARTRATE 25 MG TABLET (FP) PO SCH (10:00)
[2022-02-25 14:28] VITALS: BP 120/70; PULSE 84; TEMP 98.4
[2022-02-25] MEDS ORDERED: ATORVASTATIN CA 80 MG TABLET (FP) PO SCH (22:00)
== END 2022-02-25 18:20 | disposition home or self-care (01) | DRG 389 ==
LOC: JER 11:12 → JERBED 20:43 → J6S 02-25 04:09
PROVIDERS: ADMIT Hospitalist; ATTEND Internal Medicine
DX: K91.30 Postprocedural intestinal obstruction, unspecified as to partial versus complete (principal); E87.2 Acidosis; N17.9 Acute kidney failure, unspecified; J44.9 Chronic obstructive pulmonary disease, unspecified; I73.9 Peripheral vascular disease, unspecified; I25.2 Old myocardial infarction; I10 Essential (primary) hypertension; E78.5 Hyperlipidemia, unspecified; D72.829 Elevated white blood cell count, unspecified; Y83.9 Surgical procedure, unspecified as the cause of abnormal reaction of the patient, or of later complication, without mention of misadventure at the time of the procedure; I25.10 Atherosclerotic heart disease of native coronary artery without angina pectoris
CPT/HCPCS: 0241U-QW; 36415; 71046-TC-FY; 74177-TC; 80053; 81003; 83605; 83690; 83735; 84100; 84484; 85025; 85027; 85610; 85730; 86850; 86900; 86901; 87086; 93005; 93010; 99285-25; Q9967

== ENCOUNTER 2023-06-03 06:06 | Day surgery (SDC) | payer BC ==
[2023-05-27 16:20] VITALS: BMI 35.7
[2023-06-03] MEDS ORDERED: BUPIVACAINE HCL/PF 0.5% (5MG/ML) 10 ML VIAL ONE ×3 (07:15→07:34)
[2023-06-03] MEDS ORDERED: EPINEPHrine 1:1,000 1,000 MCG/ML ML ONE (07:15)
[2023-06-03] MEDS ORDERED: BUPIVACAINE HCL/PF 0.25% (2.5MG/ML) 10 ML VIAL ONE (07:15)
[2023-06-03] MEDS ORDERED: MIDAZOLAM HCL 2 MG/2 ML SINGLE DOSE VIAL ONE (07:33)
[2023-06-03] MEDS ORDERED: PROPOFOL 20 ML ONE ×2 (07:33→08:34)
[2023-06-03] MEDS ORDERED: KETOROLAC TROMETHAMINE 30 MG/1 ML VIAL ONE (09:02)
[2023-06-03] MEDS ORDERED: ceFAZolin SODIUM 1 GM VIAL ONE (09:02)
[2023-06-03] MEDS ORDERED: DEXAMETHASONE SOD PHOSPHATE 4 MG/1 ML VIAL ONE (09:02)
[2023-06-03] MEDS ORDERED: ONDANSETRON 4 MG/2 ML VIAL ONE (09:02)
[2023-06-03] MEDS ORDERED: BUPIVACAINE HCL/PF 0.25% (2.5MG/ML) 10 ML VIAL IJ ONE (09:09)
[2023-06-03] MEDS ORDERED: ONDANSETRON 4 MG/2 ML VIAL IVPUSH PRN (09:27)
[2023-06-03] MEDS ORDERED: ACETAMINOPHEN 1000 MG/100 ML BAG IVPB ONE (09:27)
[2023-06-03] MEDS ORDERED: LACTATED RINGERS SOLUTION 1,000 ML IV SCH (09:30)
[2023-06-03 11:49] VITALS: RESP 16; TEMP 96.7
[2023-06-03 12:02] VITALS: PULSE 63
[2023-06-03 15:26] VITALS: BP 112/70
== END 2023-06-03 14:55 | disposition home or self-care (01) ==
LOC: FASU 06:06
PROVIDERS: ATTEND Orthopaedic Surgery Sports Medicine
PROC: 0SBC4ZZ Excision of Right Knee Joint, Percutaneous Endoscopic Approach (ICD-10-PCS; 2023-06-03)
PROC: 0SBC4ZZ Excision of Right Knee Joint, Percutaneous Endoscopic Approach (ICD-10-PCS; principal; 2023-06-03 08:48)
DX: S83.241A Other tear of medial meniscus, current injury, right knee, initial encounter (principal); S83.281A Other tear of lateral meniscus, current injury, right knee, initial encounter; M94.261 Chondromalacia, right knee; M65.861 Other synovitis and tenosynovitis, right lower leg; X58.XXXA Exposure to other specified factors, initial encounter; Y92.9 Unspecified place or not applicable; Y93.9 Activity, unspecified
CPT/HCPCS: 94760

== ENCOUNTER 2023-09-16 14:59 | Inpatient (IN) | payer BC ==
[2023-09-16 15:11] VITALS: BMI 29.0
[2023-09-16] MEDS ORDERED: HYDROmorphone HCl 2 MG/ML VIAL ONE ×2 (15:23→19:37)
[2023-09-16] MEDS: HYDROmorphone HCl 2 MG/ML VIAL IVPUSH ONE ×2 (15:38→19:46)
[2023-09-16 15:46] LABS: BASO % 0.2 % (0-2.0); EOS % 0.2 % (0-4.5); HEMATOCRIT 52.2 % (35.4-49); HEMOGLOBIN 18.1 GM/dL (11.7-16.9); LYMPH % 5.9 % (8-40); MCH 30.9 pg (25.7-33.7); MCHC 34.6 g/dl (32.0-35.9); MEAN CELL VOLUME 89.3 fl (80-96); MEAN PLT VOLUME 8.2 fl (7.5-11.1); MONO % 7.5 % (3.8-10.2); NEUT % 86.2 % (42.8-82.8); PLATELET COUNT 305 10^3/uL (134-434); RBC 5.84 M/mm3 (4.00-5.60); RDW 13.9 % (11.9-15.9); WHITE BLOOD COUNT 13.3 K/mm3 (4.0-10.0)
[2023-09-16 15:53] LABS: INR 1.05 (0.83-1.09); PROTHROMBIN TIME (PATIENT) 12.2 SEC (9.7-13.0)
[2023-09-16 15:55] LABS: ACTIVATED PTT 30.2 SECONDS (25.2-36.5)
[2023-09-16 16:14] LABS: POTASSIUM 4.5 mmol/L (3.5-5.1)
[2023-09-16 16:16] LABS: ALBUMIN 4.7 g/dl (3.4-5.0); CALCIUM 10.8 mg/dL (8.5-10.1)
[2023-09-16 16:17] LABS: BLOOD UREA NITROGEN 19.4 mg/dL (7-18); MAGNESIUM 2.1 mg/dL (1.8-2.4)
[2023-09-16 16:19] LABS: CREATININE 1.5 mg/dL (0.55-1.3)
[2023-09-16 16:21] LABS: BILIRUBIN,TOTAL 1.8 mg/dL (0.2-1)
[2023-09-16 16:22] LABS: VENOUS BASE EXCESS 2.1 mmol/L (-2-2); VENOUS O2 SATURATION 22.6 % (70-80); VENOUS PCO2 37.4 mmHg (38-52); VENOUS PH 7.456 (7.310-7.410)
[2023-09-16 16:40] LABS: LACTIC ACID 2.6 mmol/L (0.4-2.0)
[2023-09-16] MEDS ORDERED: ONDANSETRON 4 MG/2 ML VIAL ONE (17:03)
[2023-09-16] MEDS ORDERED: ACETAMINOPHEN INJECTION 100 ML IVPB ONE (17:03)
[2023-09-16] MEDS: SODIUM CHLORIDE 0.9% 500 ML INFUS.BAG IV ONE (17:10)
[2023-09-16] MEDS: ONDANSETRON 4 MG/2 ML VIAL IVPUSH ONE (17:11)
[2023-09-16] MEDS: ACETAMINOPHEN 1000 MG/100 ML BAG IVPB ONE (17:11)
[2023-09-16] MEDS ORDERED: MIDAZOLAM HCL 2 MG/2 ML SINGLE DOSE VIAL ONE (17:36)
[2023-09-16] MEDS: MIDAZOLAM HCL 2 MG/2 ML SINGLE DOSE VIAL IVPUSH ONE (17:43)
[2023-09-16] MEDS: amLODIPine BESYLATE 5 MG TABLET (FP) PO ONE (19:01)
[2023-09-16] MEDS: ATORVASTATIN CA 80 MG TABLET (FP) PO ONE (19:20)
[2023-09-16] MEDS ORDERED: AMPICILLIN NA/SULBACTAM NA 3 GM/100 ML BAG IVPB ONE (19:25)
[2023-09-16] MEDS ORDERED: PANTOPRAZOLE SODIUM 40 MG VIAL ONE (19:25)
[2023-09-16] MEDS: PANTOPRAZOLE SODIUM 40 MG VIAL IVPUSH ONE (19:33)
[2023-09-16] MEDS: AMPICILLIN NA/SULBACTAM NA 3 GM in DEXTROSE 5%-WATER 100 ML IVPB ONE (19:33)
[2023-09-16] MEDS: amLODIPine BESYLATE 5 MG TABLET (FP) PO SCH (19:33)
[2023-09-16] MEDS: LACTATED RINGERS SOLUTION 1,000 ML/1,000 ML INFUS.BAG IV SCH (19:33)
[2023-09-16] MEDS: BUDESONIDE/FORMETEROL FUMARATE 80/4.5 mcg INHALER IH ONE (19:46)
[2023-09-17 01:11] LABS: BASO % 0.1 % (0-2.0); EOS % 0.1 % (0-4.5); HEMATOCRIT 45.2 % (35.4-49); HEMOGLOBIN 15.6 GM/dL (11.7-16.9); LYMPH % 6.9 % (8-40); MCH 31.1 pg (25.7-33.7); MCHC 34.5 g/dl (32.0-35.9); MEAN PLT VOLUME 8.4 fl (7.5-11.1); MONO % 16.4 % (3.8-10.2); NEUT % 76.5 % (42.8-82.8); PLATELET COUNT 231 10^3/uL (134-434); RBC 5.02 M/mm3 (4.00-5.60); RDW 14.1 % (11.9-15.9); WHITE BLOOD COUNT 6.9 K/mm3 (4.0-10.0)
[2023-09-17] MEDS: ACETAMINOPHEN 1000 MG/100 ML BAG IVPB PRN ×2 (01:30→10:09)
[2023-09-17 01:31] LABS: POTASSIUM 4.7 mmol/L (3.5-5.1)
[2023-09-17 01:34] LABS: BLOOD UREA NITROGEN 22.4 mg/dL (7-18)
[2023-09-17 01:36] LABS: CREATININE 1.4 mg/dL (0.55-1.3)
[2023-09-17 01:38] LABS: BILIRUBIN,TOTAL 1.4 mg/dL (0.2-1); TOT PROT 7.1 g/dl (6.4-8.2)
[2023-09-17 01:55] LABS: ALBUMIN 3.5 g/dl (3.4-5.0); CALCIUM 8.6 mg/dL (8.5-10.1)
[2023-09-17] MEDS: ONDANSETRON 4 MG/2 ML VIAL IVPUSH ONE (08:44)
[2023-09-17] MEDS ORDERED: ACETAMINOPHEN INJECTION 100 ML IVPB ONE ×2 (10:04→16:51)
[2023-09-17] MEDS ORDERED: PIPERACILLIN/TAZOB 3.375 GM 3.375 GM/50 ML BAG IVPB ONE (11:24)
[2023-09-17] MEDS: PIPERACILLIN/TAZOB 3.375 GM 3.375 GM in DEXTROSE 5%-WATER - 50 ML IVPB SCH (11:43)
[2023-09-17] MEDS: ACETAMINOPHEN 1000 MG/100 ML BAG IVPB ONE (14:14)
[2023-09-17 17:17] VITALS: BP 117/75; PULSE 88; RESP 16; TEMP 98.2
[2023-09-18] MEDS ORDERED: ENOXAPARIN NA (PORCINE) 40 MG/0.4 ML DISP.SYRIN SQ SCH (10:00)
== END 2023-09-17 17:27 | disposition short-term general hospital (02) | DRG 389 ==
LOC: JER 14:59 → JERBED 18:00
PROVIDERS: ADMIT Family Medicine; ATTEND Family Medicine
DX: K56.699 Other intestinal obstruction unspecified as to partial versus complete obstruction (principal); E87.20 Acidosis, unspecified; I25.10 Atherosclerotic heart disease of native coronary artery without angina pectoris; I10 Essential (primary) hypertension; I73.9 Peripheral vascular disease, unspecified; E78.5 Hyperlipidemia, unspecified; J44.9 Chronic obstructive pulmonary disease, unspecified; E11.9 Type 2 diabetes mellitus without complications; Z95.5 Presence of coronary angioplasty implant and graft; D72.829 Elevated white blood cell count, unspecified
CPT/HCPCS: 0241U-QW; 36415; 71045-TC-FY; 71275-TC; 74018-TC-FY; 74019-TC-FY; 74174-TC; 80053; 82803; 83605; 83690; 83735; 85025; 85610; 85730; 86850; 86900; 86901; 87040; 93005; 93010; 99285-25; J0131; Q9967

== ENCOUNTER → 2024-02-28 | Day surgery (SDC) | payer BC ==
[2024-02-24 10:59] VITALS: BMI 32.5
[2024-02-28 11:43] VITALS: TEMP 98
[2024-02-28 12:17] VITALS: BP 127/71; PULSE 68; RESP 18
== END | disposition home or self-care (01) ==
LOC: JASU-ENDO 04:40
PROVIDERS: ATTEND Student in an Organized Health Care Education/Training Program
PROC: 0D7P8ZZ Dilation of Rectum, Via Natural or Artificial Opening Endoscopic (ICD-10-PCS; principal; 2024-02-28 10:15)
DX: K62.4 Stenosis of anus and rectum (principal)

== ENCOUNTER 2024-06-17 04:17 | Day surgery (SDC) | payer BC ==
[2024-06-15 16:24] VITALS: BMI 34.9
[2024-06-17 09:24] VITALS: TEMP 98
[2024-06-17 09:43] VITALS: PULSE 72; RESP 18
[2024-06-17 09:51] VITALS: BP 117/82
== END 2024-06-17 10:05 | disposition home or self-care (01) ==
LOC: JASU-ENDO 04:17
PROVIDERS: ATTEND Internal Medicine Gastroenterology
PROC: 0D7N8DZ Dilation of Sigmoid Colon with Intraluminal Device, Via Natural or Artificial Opening Endoscopic (ICD-10-PCS; principal; 2024-06-17 08:00)
DX: Z09 Encounter for follow-up examination after completed treatment for conditions other than malignant neoplasm (principal); K56.699 Other intestinal obstruction unspecified as to partial versus complete obstruction

== ENCOUNTER 2024-09-14 22:54 | Inpatient (IN) | payer BC ==
[2024-09-14] MEDS ORDERED: HYDROmorphone HCL CARPU-JECT 2 MG/1 ML DISP.SYRIN ONE (23:20)
[2024-09-14] MEDS ORDERED: ONDANSETRON 4 MG/2 ML VIAL ONE (23:20)
[2024-09-14] MEDS ORDERED: FAMOTIDINE 20 MG/50 ML IVPB 20 MG/50 ML MG IVPB ONE (23:21)
[2024-09-14] MEDS: FAMOTIDINE 20 MG/50 ML IVPB 20 MG/50 ML MG IVPB ONE (23:31)
[2024-09-14] MEDS: HYDROmorphone HCl 2 MG/ML VIAL IVPUSH ONE (23:31)
[2024-09-14] MEDS: ONDANSETRON 4 MG/2 ML VIAL IVPUSH ONE (23:31)
[2024-09-14] MEDS: LACTATED RINGERS SOLUTION 1000 ML INFUS.BAG IV ONE (23:31)
[2024-09-14 23:38] LABS: BASO % 0.3 % (0-2.0); EOS % 0.4 % (0-4.5); HEMATOCRIT 48.7 % (35.4-49); HEMOGLOBIN 16.5 GM/dL (11.7-16.9); LYMPH % 9.5 % (8-40); MCH 30.5 pg (25.7-33.7); MCHC 33.8 g/dl (32.0-35.9); MEAN CELL VOLUME 90.3 fl (80-96); MEAN PLT VOLUME 8.2 fl (7.5-11.1); MONO % 5.7 % (3.8-10.2); NEUT % 84.1 % (42.8-82.8); PLATELET COUNT 245 10^3/uL (134-434); RDW 13.6 % (11.9-15.9); WHITE BLOOD COUNT 9.1 K/mm3 (4.0-10.0)
[2024-09-14 23:47] LABS: INR 1.11 (0.83-1.09); PROTHROMBIN TIME (PATIENT) 12.2 SEC (9.7-13.0)
[2024-09-14 23:50] LABS: ACTIVATED PTT 32.1 SECONDS (25.2-36.5)
[2024-09-15] MEDS ORDERED: HYDROmorphone HCL CARPU-JECT 2 MG/1 ML DISP.SYRIN ONE (00:41)
[2024-09-15] MEDS: HYDROmorphone HCl 2 MG/ML VIAL IVPUSH ONE (00:47)
[2024-09-15 00:54] LABS: POTASSIUM 4.2 mmol/L (3.5-5.1)
[2024-09-15 00:56] LABS: CALCIUM 9.7 mg/dL (8.5-10.1); MAGNESIUM 2.2 mg/dL (1.8-2.4)
[2024-09-15 00:57] LABS: ALBUMIN 4.3 g/dl (3.4-5.0); BLOOD UREA NITROGEN 15.8 mg/dL (7-18)
[2024-09-15 00:59] LABS: CREATININE 1.3 mg/dL (0.55-1.3)
[2024-09-15 01:00] LABS: PHOSPHOROUS 2.5 mg/dL (2.5-4.9)
[2024-09-15 01:01] LABS: TOT PROT 7.9 g/dl (6.4-8.2)
[2024-09-15 01:02] LABS: BILIRUBIN,TOTAL 1.4 mg/dL (0.2-1)
[2024-09-15] MEDS ORDERED: ONDANSETRON 4 MG/2 ML VIAL ONE (03:58)
[2024-09-15] MEDS: ONDANSETRON 4 MG/2 ML VIAL IVPUSH ONE (04:20)
[2024-09-15] MEDS: LACTATED RINGERS SOLUTION 1,000 ML/1,000 ML INFUS.BAG IV SCH (04:42)
[2024-09-15 05:41] VITALS: BMI 31.7
[2024-09-15] MEDS ORDERED: ALBUTEROL SO4 HFA INHALER IH PRN (10:25)
[2024-09-15] MEDS: ONDANSETRON 4 MG/2 ML VIAL IVPUSH PRN (10:46)
[2024-09-15] MEDS: SODIUM CHLORIDE 1,000 ML IV SCH (11:45)
[2024-09-15] MEDS: DEXTROSE 5%-0.45% SALINE 1,000 ML IV SCH (17:40)
[2024-09-15] MEDS: ATORVASTATIN CA 80 MG TABLET (FP) PO SCH (21:10)
[2024-09-16] MEDS: ASPIRIN COATED 81 MG TABLET.EC PO SCH (10:31)
[2024-09-16] MEDS: PANTOPRAZOLE SODIUM 40 MG VIAL IVPUSH SCH (10:31)
[2024-09-16] MEDS: amLODIPine BESYLATE 5 MG TABLET (FP) PO SCH (10:31)
[2024-09-16] MEDS: SACUBITRIL/VALSARTAN 24 MG-26 MG TABLET PO SCH (21:24)
[2024-09-17 07:30] VITALS: RESP 18
[2024-09-17 10:16] LABS: BASO % 0.4 % (0-2.0); EOS % 2.5 % (0-4.5); HEMATOCRIT 42.6 % (35.4-49); HEMOGLOBIN 14.2 GM/dL (11.7-16.9); LYMPH % 16.9 % (8-40); MCH 30.3 pg (25.7-33.7); MCHC 33.4 g/dl (32.0-35.9); MEAN CELL VOLUME 90.8 fl (80-96); MEAN PLT VOLUME 8.3 fl (7.5-11.1); MONO % 9.6 % (3.8-10.2); NEUT % 70.6 % (42.8-82.8); PLATELET COUNT 176 10^3/uL (134-434); RBC 4.69 M/mm3 (4.00-5.60); RDW 13.1 % (11.9-15.9); WHITE BLOOD COUNT 5.8 K/mm3 (4.0-10.0)
[2024-09-17 11:10] VITALS: BP 121/84; PULSE 65; TEMP 98.2
[2024-09-17 11:40] LABS: POTASSIUM 3.5 mmol/L (3.5-5.1)
[2024-09-17 11:41] LABS: CALCIUM 8.5 mg/dL (8.5-10.1)
[2024-09-17 11:42] LABS: BLOOD UREA NITROGEN 9.3 mg/dL (7-18)
[2024-09-17 11:45] LABS: CREATININE 1.1 mg/dL (0.55-1.3)
== END 2024-09-17 11:57 | disposition home or self-care (01) | DRG 389 ==
LOC: JER 22:54 → JERBED 09-15 03:35 → J7W 09-15 05:22 → OBSVTOIN 09-15 10:59
PROVIDERS: ADMIT Family Medicine; ATTEND Family Medicine
PROC: 0D7N8ZZ Dilation of Sigmoid Colon, Via Natural or Artificial Opening Endoscopic (ICD-10-PCS; principal; 2024-09-15 12:00)
DX: K91.30 Postprocedural intestinal obstruction, unspecified as to partial versus complete (principal); K59.39 Other megacolon; J44.9 Chronic obstructive pulmonary disease, unspecified; I73.9 Peripheral vascular disease, unspecified; I25.10 Atherosclerotic heart disease of native coronary artery without angina pectoris; I25.2 Old myocardial infarction; I71.40 Abdominal aortic aneurysm, without rupture, unspecified; Y83.8 Other surgical procedures as the cause of abnormal reaction of the patient, or of later complication, without mention of misadventure at the time of the procedure
CPT/HCPCS: 0241U-QW; 36415; 71045-TC-FY; 71275-TC; 74174-TC; 74270-TC-FY; 80048; 80053; 82550; 82962; 83036; 83605; 83690; 83735; 84100; 84484; 85025; 85610; 85730; 86850; 86900; 86901; 93005; 93010; 99285-25; G0378; Q9967